=== PATIENT | male | born 1935 ===

== ENCOUNTER 2017-04-26 08:19 | Inpatient (IN) | payer MEDICARE, OTHER ==
[2017-04-26 08:23] VITALS: BMI 27.3
--- NOTE | 2017-04-26 09:22 | ED PDOC ---
HPI: General Adult Time Seen by Provider: 04/26/17 09:06 Chief Complaint (Nursing): Lower Extremity Problem/Injury Chief Complaint (Provider): altered behavior History Per: EMS History/Exam Limitations: clinical condition Onset/Duration Of Symptoms: Unknown Additional Complaint(s): Enrique Chew is an 81 year old male, with a previous medical history of dementia, who was brought into the ED via EMS after being found in a gas station. According to EMS patient was last seen 2 days ago in [place]. Patient is unsure why he is here and has no recollection of the events prior to arrival. He is currently denying chest pain, shortness of breath, headache, nausea, vomiting, diarrhea, abdominal pain, leg pain, numbness or tingling. He is unsure of where he lives stating he lives in [place] in the [facility] [place]. Has no symptomatic complaints. PMD: none provided Past Medical History Reviewed: Historical Data, Nursing Documentation, Vital Signs Vital Signs: Last Vital Signs Temp 97.7 F 04/26/17 14:19 Pulse 70 04/26/17 14:19 Resp 19 04/26/17 14:19 BP 170/80 H 04/26/17 14:19 Pulse Ox 98 04/26/17 15:43 - Medical History PMH: Dementia, HTN - Family History Family History: States: Unknown Family Hx - Social History Current smoker - smoking cessation education provided: No Alcohol: None Drugs: Denies - Home Medications Home Medications: Ambulatory Orders Medication Instructions Recorded Clopidogrel [Plavix] 75 mg PO DAILY 04/26/17 Lisinopril [Zestril] 40 mg PO DAILY 04/26/17 Simvastatin [Zocor] 20 mg PO HS 04/26/17 - Allergies Allergies/Adverse Reactions: Allergies Allergy/AdvReac Type Severity Reaction Status Date / Time No Known Allergies Allergy Verified 04/26/17 08:30 Review of Systems Review Of Systems: ROS cannot be obtained secondary to pt's inabilty to answer questions. (patient is in a state of confabulation) Constitutional: Negative for: Fever, Chills Cardiovascular: Negative for: Chest Pain Respiratory: Negative for: Shortness of Breath Gastrointestinal: Negative for: Nausea, Vomiting, Abdominal Pain, Diarrhea Musculoskeletal: Negative for: Leg Pain Neurological: Negative for: Numbness, Headache, Other (tingling ) Physical Exam - Reviewed Nursing Documentation Reviewed: Yes Vital Signs Reviewed: Yes - Physical Exam Appears: Positive for: Non-toxic, No Acute Distress Head Exam: Positive for: ATRAUMATIC, NORMAL INSPECTION, NORMOCEPHALIC Skin: Positive for: Normal Color, Warm, DRY Eye Exam: Positive for: EOMI, Normal appearance, PERRL ENT: Positive for: Normal ENT Inspection Neck: Positive for: Normal, Painless ROM, Supple Cardiovascular/Chest: Positive for: Regular Rate, Rhythm Respiratory: Positive for: CNT, Normal Breath Sounds Gastrointestinal/Abdominal: Positive for: Normal Exam, Bowel Sounds, Soft. Negative for: Tenderness Back: Positive for: Normal Inspection. Negative for: L CVA Tenderness, R CVA Tenderness Extremity: Positive for: Normal ROM. Negative for: Tenderness, Pedal Edema Neurologic/Psych: Positive for: Alert (following commands ), pin inserter II-XII, Oriented, Other (some confabulation to questions noted). Negative for: Motor/ Sensory Deficits - Laboratory Results Result Diagrams: 04/26/17 09:38 04/26/17 09:38 Interpretation Of Abn Labs: no acute - ECG ECG: Positive for: Interpreted By Me, Viewed By Me ECG Rhythm: Positive for: Sinus Rhythm, Nonspecific Changes O2 Sat by Pulse Oximetry: 98 (RA) Pulse Ox Interpretation: Normal - CT Scan/US ct Other Rad Studies (CT/US): Read By Radiologist Other Rad Interpretation: no acute - Progress ED Course And Treament: 1300: Stable. Crisis evaluating pt. 1541: Crisis wants pt. to be screened by [facility] [place]. 1808: [facility] [place] [facility] wants neurologist yoshi. Will admit obs. Spoke with Dr. Tucker. Will see pt. in the ED. Medical Decision Making Medical Decision Making: Initial Plan: * CT head w/o contrast * EKG * urine drug screen * accu-check * PTT * PT * Troponin * urine dipstick * alcohol serum * reevaluation 11:36 CT head FINDINGS: HEMORRHAGE: No intracranial hemorrhage. BRAIN: No mass effect or edema. Mild age-appropriate diffuse atrophy. 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 No evidence of acute infarct. VENTRICLES: Unremarkable. No hydrocephalus. CALVARIUM: Unremarkable. PARANASAL SINUSES: Minimal chronic ethmoid sinusitis. MASTOID AIR CELLS: Unremarkable as visualized. No inflammatory changes. OTHER FINDINGS: None. IMPRESSION: No intracranial mass, hemorrhage or evidence of acute infarct. Small old left basal ganglia lacunae and old right pontine lacune. Minimal chronic ethmoid sinusitis. Scribe Attestation: Documented by Jayne Martinez, acting as a scribe for Jeyson Lee MD. Provider Scribe Attestation: All medical record entries made by the Scribe were at my direction and personally dictated by me. I have reviewed the chart and agree that the record accurately reflects my personal performance of the history, physical exam, medical decision making, and the department course for this patient. I have also personally directed, reviewed, and agree with the discharge instructions and disposition. ED OBSERVATION Date of observation admission: 04/26/17 Time of observation admission: 15:43 - Observation admission statement Patient is being placed in observation because:: Altered behavior eval - Goals of Observation Goals of observation are:: continue eval and [facility] [place] - Clinical Impression Clinical Impression: Altered mental status - Patient ED Disposition Is Patient to be Admitted: Yes Counseled Patient/Family Regarding: Studies Performed, Diagnosis - Disposition Disposition Time: 18:10 Condition: STABLE - Pt Status Changed To: Hospital Disposition Of: Observation - POA Present On Arrival: None
[2017-04-26 09:42] LABS: BASO % 0.6 % (0.0-2.0); EOS # 0.2 K/uL (0.0-0.7); EOS % 2.9 % (0.0-4.0); HEMATOCRIT 43.6 % (35.0-51.0); LYMPH % 15.4 % (20.0-40.0); MEAN CELL VOLUME 92.9 fl (80.0-94.0); MEAN CORPUSCULAR HEMOGLOBIN 31.3 pg (27.0-31.0); MEAN CORPUSCULAR HGB CONC 33.7 g/dL (33.0-37.0); MEAN PLATELET VOLUME 11.8 fl (7.2-11.7); MONO # 0.5 K/uL (0.0-0.8); MONO % 8.7 % (0.0-10.0); NEUT # 4.6 K/uL (1.8-7.0); NEUT % 72.4 % (50.0-75.0); NRBC % 0.1 % (0.0-0.0); RED CELL DISTRIBUTION WIDTH 14.1 % (11.5-14.5); WHITE BLOOD COUNT 6.3 K/uL (4.8-10.8)
[2017-04-26 10:01] LABS: PARTIAL THROMBOPLASTIN TIME 31.9 Seconds (25.6-37.1)
[2017-04-26 10:06] LABS: ALB/GLOB RATIO 1.4 (1.0-2.1); ALCOHOL SERUM < 10 mg/dl (0-10); ALKALINE PHOSPHATASE 153 U/L (38-126); ALT/SGPT 54 U/L (21-72); AST/SGOT 38 U/L (17-59); BLOOD UREA NITROGEN 15 mg/dl (9-20); CARBON DIOXIDE 22 mmol/L (22-30); CHLORIDE 108 mmol/L (98-107); GFR AFRICAN-AMERICAN > 60; GLUCOSE,RANDOM 122 mg/dL (75-110); POTASSIUM 4.1 MMOL/L (3.6-5.0); SODIUM 142 mmol/l (132-148); TOTAL PROTEIN 7.9 G/DL (6.3-8.2)
--- NOTE | 2017-04-26 11:38 | CT ---
PROCEDURE: CT HEAD WITHOUT CONTRAST. HISTORY: headache COMPARISON: None available. TECHNIQUE: Axial computed tomography images were obtained through the head/brain without intravenous contrast. Radiation dose: Total exam DLP = 81.82 mGy-cm. This CT exam was performed using one or more of the following dose reduction techniques: Automated exposure control, adjustment of the mA and/or kV according to patient size, and/or use of iterative reconstruction technique. FINDINGS: HEMORRHAGE: No intracranial hemorrhage. BRAIN: No mass effect or edema. Mild age-appropriate diffuse atrophy. 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 No evidence of acute infarct. VENTRICLES: Unremarkable. No hydrocephalus. CALVARIUM: Unremarkable. PARANASAL SINUSES: Minimal chronic ethmoid sinusitis. MASTOID AIR CELLS: Unremarkable as visualized. No inflammatory changes. OTHER FINDINGS: None. IMPRESSION: No intracranial mass, hemorrhage or evidence of acute infarct. Small old left basal ganglia lacunae and old right pontine lacune. Minimal chronic ethmoid sinusitis.
--- NOTE | 2017-04-26 15:54 | RAD ---
HISTORY: PSYCH SCREEN COMPARISON: No prior. FINDINGS: LUNGS: No active pulmonary disease. PLEURA: No significant pleural effusion identified, no pneumothorax apparent. CARDIOVASCULAR: Normal. OSSEOUS STRUCTURES: No significant abnormalities. VISUALIZED UPPER ABDOMEN: Normal. OTHER FINDINGS: None. IMPRESSION: No active disease.
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
[2017-04-27 08:59] LABS: T4 9.59 ug/dl (5.5-11.0)
--- NOTE | 2017-04-27 09:05 | CP.PCM.PN ---
Subjective - Date & Time of Evaluation Date of Evaluation: 04/27/17 Time of Evaluation: 09:05 - Subjective Subjective: NO APPARENT DISTRESS COMFORTABLE THIS AM STILL CONFUSED VSS Objective - Vital Signs/Intake and Output Vital Signs (last 24 hours): Temp Pulse Resp BP Pulse Ox 97.6 F 69 18 156/66 H 97 04/27/17 08:21 04/27/17 08:50 04/27/17 08:21 04/27/17 08:50 04/27/17 08:21 - Medications Medications: Current Medications Atorvastatin Calcium (Lipitor) 10 mg PO HS [facility] Last Admin: 04/26/17 21:59 Dose: 10 mg Clopidogrel Bisulfate (Plavix) 75 mg PO DAILY [facility] Last Admin: 04/27/17 08:50 Dose: 75 mg Lisinopril (Zestril) 40 mg PO DAILY [facility] Last Admin: 04/27/17 08:50 Dose: 40 mg - Labs Labs: PT 12.8 Seconds (9.8-13.1) 04/26/17 09:38 INR 1.1 (0.9-1.2) 04/26/17 09:38 APTT 31.9 Seconds (25.6-37.1) 04/26/17 09:38 - Constitutional Appears: Unkempt - Head Exam Head Exam: ATRAUMATIC, NORMAL INSPECTION, NORMOCEPHALIC - Eye Exam Eye Exam: EOMI, Normal appearance, PERRL Pupil Exam: NORMAL ACCOMODATION, PERRL - ENT Exam ENT Exam: Mucous Membranes Moist, Normal Exam - Neck Exam Neck Exam: Full ROM, Normal Inspection. absent: Lymphadenopathy - Respiratory Exam Respiratory Exam: Clear to Ausculation Bilateral, NORMAL BREATHING PATTERN - Cardiovascular Exam Cardiovascular Exam: REGULAR RHYTHM, +S1, +S2. absent: Murmur - GI/Abdominal Exam GI & Abdominal Exam: Soft, Normal Bowel Sounds. absent: Tenderness - Rectal Exam Rectal Exam: NORMAL INSPECTION - Extremities Exam Extremities Exam: Full ROM, Normal Capillary Refill, Normal Inspection. absent : Joint Swelling, Pedal Edema - Back Exam Back Exam: NORMAL INSPECTION - Neurological Exam Neurological Exam: Alert, Awake, CN II-XII Intact, Normal Gait, Oriented x3 - Psychiatric Exam Psychiatric exam: Normal Affect, Normal Mood - Skin Skin Exam: Dry, Intact, Normal Color, Warm Assessment and Plan - Assessment and Plan (Free Text) Assessment: ALTERED MENTAL STATUS Plan: AWAIT NEUROLOGY CLEARANCE PRIOR TO TRANSFER TO [facility]
[2017-04-27 09:13] LABS: THYROID STIMULATING HORMONE 1.4 mIU/ML (0.46-4.68)
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
[2017-04-27 17:58] LABS: FOLATE > 20.0 ng/mL
--- NOTE | 2017-04-27 18:04 | CARD ---
APPROVED REPORT EKG Measurement Heart [id number] <Conclusion> Normal sinus rhythm Nonspecific ST abnormality Abnormal ECG
[2017-04-28 01:34] VITALS: RESP 18
--- NOTE | 2017-04-28 01:42 | CON ---
DATE: 04/27/2017 REASON FOR CONSULTATION: Change in mental status. CHIEF COMPLAINT: The patient was brought in by EMS from the gas station where the patient was found to be confused, who has been traveling from [place]. The car was stopped at the gas station to fill up the gas and the patient was found to be confused. From neurological point of view, I was called in to evaluate him for further management. HISTORY OF PRESENT ILLNESS: The patient is an 81-year-old right-handed, Japanese-Hebrew speaking male, who was traveling by car from [place] for the last two days. The car was stopped at the gas station to fill up the gas. In the gas station, he was found to be confused. EMS was called in and he was transferred to [facility] for further evaluation. At the scene, he had no witnessed tonic-clonic activities, fall, trauma, bowel or bladder incontinence. Never has had this problem in the past. However, he has been known diagnosed dementia in the past. PERSONAL HISTORY: Denies smoking, alcohol use. ALLERGIES: No known allergies. PAST MEDICAL HISTORY: Dementia, hypertension, and dyslipidemia. REVIEW OF SYSTEMS: A 12-point review of system reviewed and accepting the documentation except from neurological point of view, change in the mental status, it is somewhat new to him. MEDICATIONS: Atorvastatin, clopidogrel, and Zestril. PHYSICAL EXAMINATION VITAL SIGNS: Blood pressure 158/60, mean arterial pressure of 92, respiratory rate 16, and temperature is afebrile. NECK: Supple. No carotid bruit. HEART: Sounds are regular. CHEST: Fair air entry. EXTREMITIES: No edema in legs. NEUROLOGIC EXAMINATION: MENTAL STATUS EXAMINATION: He is awake, alert and oriented to person, place, and time. Speech is clear. Naming, repetition, fluency, comprehension all within normal. He can follow two-step command, mild right and left confusion. He could not be able to follow three-step commands. Simple calculation he could do. He is able to name the objects. He could go back to [facility]. No sign of confabulation, no sign of hallucination, no sign of suicidal ideation, and no sign of depression. CRANIAL NERVE EXAMINATION: Visual field intact. Pupils reactive to light. Extraocular movement normal. No nystagmus. No facial sensory deficit. No facial asymmetry. Hearing is normal. Tongue is midline. Good gag. MOTOR EXAMINATION: An outstretched hand with eyes closed, no drift is noted. Power is symmetric on either side. Deep tendon reflexes; biceps, brachialis, triceps trace, both knees are trace, both ankles are absent. Plantars are downgoing. Feet shows pes planus deformity noted. Plantars are mute. COORDINATION: [id number] test is intact. Gait is broad-based gait. CONCLUSION: Upon reviewing his history and neurological examination, the patient has been presenting with situational change in mental status. Otherwise, the current examination does not show any long tract signs. However, considering this problem, electrolyte imbalance from neurological point of view, structural cause such as ischemia, seizures should be ruled out. WORKUP: CT of the head reviewed by me. No acute pathology is noted. Mild atrophy updated. EEG reviewed by me, no acute paroxysmal activities, now focal slowing noted. LABS: WBC 6.3, hemoglobin 14.7, hematocrit 43.6, and platelet 99. PT 12.8, INR 1.1, and PTT 31.9. Sodium 142, potassium 4.1, chloride 108, bicarbonate 22, GFR 20, glucose 118. B12 of 306. Ammonia less than 12. TSH 1.40. RPR negative. From neurological point of view, I think he is stable except mild dementia, age-related dementia versus vascular dementia. No further workup is needed at present. However, the patient is recommended to be followed by his own neurologist back home or here for further workup of his mild cognitive impairment. Mike Nevarez MD
[2017-04-28 08:13] VITALS: BP 150/73; TEMP 97.9; O2SAT 97
--- NOTE | 2017-04-28 08:43 | CP.PCM.DIS ---
Provider - Provider Date of Admission: 04/27/17 09:05 Attending physician: Qamar Tucker MD Time Spent in preparation of Discharge (in minutes): 30 Diagnosis - Discharge Diagnosis (1) Dementia Status: Acute (2) Altered mental status Status: Acute Hospital Course - Lab Results Lab Results: Most Recent Lab Values WBC 6.3 K/uL (4.8-10.8) 04/26/17 09:38 RBC 4.69 Mil/uL (4.40-5.90) 04/26/17 09:38 Hgb 14.7 g/dL (12.0-18.0) 04/26/17 09:38 Hct 43.6 % (35.0-51.0) 04/26/17 09:38 MCV 92.9 fl (80.0-94.0) 04/26/17 09:38 MCH 31.3 pg (27.0-31.0) H 04/26/17 09:38 MCHC 33.7 g/dL (33.0-37.0) 04/26/17 09:38 RDW 14.1 % (11.5-14.5) 04/26/17 09:38 Plt Count 99 K/uL (130-400) L 04/26/17 09:38 MPV 11.8 fl (7.2-11.7) H 04/26/17 09:38 Neut % (Auto) 72.4 % (50.0-75.0) 04/26/17 09:38 Lymph % (Auto) 15.4 % (20.0-40.0) L 04/26/17 09:38 [place] % (Auto) 8.7 % (0.0-10.0) 04/26/17 09:38 Eos % (Auto) 2.9 % (0.0-4.0) 04/26/17 09:38 Baso % (Auto) 0.6 % (0.0-2.0) 04/26/17 09:38 Neut # 4.6 K/uL (1.8-7.0) 04/26/17 09:38 Lymph # 1.0 K/uL (1.0-4.3) 04/26/17 09:38 [place] # 0.5 K/uL (0.0-0.8) 04/26/17 09:38 Eos # 0.2 K/uL (0.0-0.7) 04/26/17 09:38 Baso # 0.0 K/uL (0.0-0.2) 04/26/17 09:38 PT 12.8 Seconds (9.8-13.1) 04/26/17 09:38 INR 1.1 (0.9-1.2) 04/26/17 09:38 APTT 31.9 Seconds (25.6-37.1) 04/26/17 09:38 Sodium 142 mmol/l (132-148) 04/26/17 09:38 Potassium 4.1 MMOL/L (3.6-5.0) 04/26/17 09:38 Chloride 108 mmol/L (98-107) H 04/26/17 09:38 Carbon Dioxide 22 mmol/L (22-30) 04/26/17 09:38 Anion Gap 16 (10-20) 04/26/17 09:38 BUN 15 mg/dl (9-20) 04/26/17 09:38 Creatinine 1.1 mg/dL (0.8-1.5) 04/26/17 09:38 Est GFR ( Amer) > 60 04/26/17 09:38 Est GFR (Non-Af Amer) > 60 04/26/17 09:38 POC Glucose (mg/dL) 118 mg/dL (65-110) H 04/26/17 08:38 Random Glucose 122 mg/dL (75-110) H 04/26/17 09:38 Calcium 10.0 mg/dL (8.4-10.2) 04/26/17 09:38 Total Bilirubin 1.0 mg/dl (0.2-1.3) 04/26/17 09:38 AST 38 U/L (17-59) 04/26/17 09:38 ALT 54 U/L (21-72) 04/26/17 09:38 Alkaline Phosphatase 153 U/L (38-126) H 04/26/17 09:38 Ammonia 12 umo/L (16-60) L 04/27/17 12:30 Troponin I 0.0590 ng/mL (0.00-0.120) 04/26/17 09:38 Total Protein 7.9 G/DL (6.3-8.2) 04/26/17 09:38 Albumin 4.6 g/dL (3.5-5.0) 04/26/17 09:38 Globulin 3.3 gm/dL (2.2-3.9) 04/26/17 09:38 Albumin/Globulin Ratio 1.4 (1.0-2.1) 04/26/17 09:38 Vitamin B12 306 pg/mL (239-931) 04/27/17 12:30 Folate > 20.0 ng/mL 04/27/17 12:30 Thyroxine (T4) 9.59 ug/dl (5.5-11.0) 04/27/17 08:26 TSH 3rd Generation 1.40 mIU/ML (0.46-4.68) 04/27/17 08:26 Urine Opiates Screen Negative (NEGATIVE) 04/26/17 10:15 Urine Methadone Screen Negative (NEGATIVE) 04/26/17 10:15 Ur Barbiturates Screen Negative (NEGATIVE) 04/26/17 10:15 Ur Phencyclidine Scrn Negative (NEGATIVE) 04/26/17 10:15 Ur Amphetamines Screen Negative (NEGATIVE) 04/26/17 10:15 U Benzodiazepines Scrn Negative (NEGATIVE) 04/26/17 10:15 U Oth Cocaine Metabols Negative (NEGATIVE) 04/26/17 10:15 U Cannabinoids Screen Negative (NEGATIVE) 04/26/17 10:15 Alcohol, Quantitative < 10 mg/dl (0-10) 04/26/17 09:38 RPR Nonreactive (NONREACTIVE) 04/27/17 12:30 - Hospital Course Hospital Course: MORE AWAKE AND ALERT NO APPARENT DISTRESS Discharge Exam - Head Exam Head Exam: ATRAUMATIC, NORMAL INSPECTION, NORMOCEPHALIC - Eye Exam Eye Exam: EOMI, Normal appearance, PERRL Pupil Exam: NORMAL ACCOMODATION, PERRL - GI/Abdominal Exam GI & Abdominal Exam: Normal Bowel Sounds - Rectal Exam Rectal Exam: NORMAL INSPECTION - Neurological Exam Neurological exam: Alert, CN II-XII Intact, Normal Gait, Oriented x3, Reflexes Normal - Psychiatric Exam Psychiatric exam: Normal Affect, Normal Mood - Skin Skin Exam: Dry, Intact, Normal Color, Warm Discharge Plan - Follow Up Plan Condition: STABLE Disposition: HOME/ ROUTINE Patient education suggested?: Yes Instructions: Dementia (GEN) Additional Instructions: CLEARED FOR DISCHARGE BY NEUROLOGY AND PSYCHIATRY PT TO RETURN WITH FRIENDS TO [place] TODAY
--- NOTE | 2017-04-28 08:47 | EEG ---
DATE: 04/27/2017 CONDITION OF THE RECORDING: This is a 16 channel electroencephalogram of an awake and drowsy adult. During the study photic stimulation was performed. Hyperventilation was not performed. TESTING: The resting electroencephalogram consists of low amplitude diffuse 3-4 Hz delta mixed with 5-7 Hz, theta activities noted. There is a frontal movement as well as muscle artifact noted. The photic stimulation did not evoke driving response noted at 2-20 Hz. IMPRESSION: This is abnormal electroencephalogram because of persistent slowing throughout the record suggestive of bilateral cerebral dysfunction. This probably secondary to metabolic vascular or degenerative process. Please correlate the findings with the neurological and radiological studies.. Mike Nevarez MD
[2017-04-28 09:06] VITALS: PULSE 64
== END 2017-04-28 12:45 | disposition home or self-care (01) | DRG 884 ==
LOC: H.ER 08:19 → H.EROBSV 10:00 → H.ERHOLD 18:02 → H.MEDSURG1 21:00 → OBSVTOIN 04-27 09:05
PROVIDERS: ADMIT Internal Medicine Pulmonary Disease; ATTEND Internal Medicine Pulmonary Disease
DX: F03.90 Unspecified dementia, unspecified severity, without behavioral disturbance, psychotic disturbance, mood disturbance, and anxiety (principal); I10 Essential (primary) hypertension; E78.5 Hyperlipidemia, unspecified; Z87.891 Personal history of nicotine dependence